=== PATIENT | male | born 1950 | race Caucasian/White ===

== ENCOUNTER → 2023-02-09 | Outpatient (CLI) | payer MEDICAID, MEDICARE ==
[~2023-02-09] MED LIST: ATOR10TA PO; FLUT12AE3 IH; [UNRECOGNIZED DRUG - CODE] PO
== END | disposition home or self-care (01) ==
LOC: RADPV 09:41
PROVIDERS: ATTEND Internal Medicine
DX: I87.2 Venous insufficiency (chronic) (peripheral) (principal)
CPT/HCPCS: 93970